=== PATIENT | male | born 2000 | race Two or more races ===

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

== ENCOUNTER 2022-12-22 18:59 | Outpatient (REF) | payer MEDICAID, SELFPAY ==
[2022-12-22 19:12] LABS: Abs Immature Grans 0.04 10^3/uL (0.0-0.06); Absolute Basophil Count 0.06 10^3/uL (0.0-0.2); Absolute Eosinophil Count 0.19 10^3/uL (0.0-0.7); Absolute Lymphocyte Count 2.74 10^3/uL (1.2-3.4); Absolute Monocyte Count 0.63 10^3/uL (0.1-0.8); Absolute Neutrophil Count 4.05 10^3/uL (1.2-6.7); Basophils % 0.8; Eosinophils % 2.5; HCT 45.7 % (40.0-50.0); HGB 14.8 g/dL (13.5-17.5); Immature Grans % 0.5; Lymphocytes % 35.5; MCH 28.2 pg (27.0-33.0); MCHC 32.4 % (32.0-36.0); MCV 87 fL (80-95); MPV 9.2 fL (8.0-11.0); Monocytes % 8.2; Neutrophils % 52.5; Platelet Count 295 10^3/uL (130-400); RBC 5.25 10^6/uL (4.36-5.78); RDW 12.4 % (11.8-14.1); RDW-SD 39.6 fL; WBC 7.71 10^3/uL (4.4-10.8)
[2022-12-22 19:42] LABS: ALT 39 U/L (16-63); AST 19 U/L (15-37); Albumin 4.2 g/dL (3.4-5.0); Alkaline Phosphatase 75 U/L (46-116); BUN 14 mg/dL (7-18); Bilirubin, Total 0.3 mg/dL (0.2-1.0); CREATININE 1.2 mg/dL (0.70-1.30); Calcium 9.4 mg/dL (8.5-10.1); Chloride 104 mmol/L (98-107); Estimated GFR 88.24 (mL/min/1.73m2); Glucose 98 mg/dL (74-106); Potassium 4.3 mmol/L (3.5-5.1); Sodium 140 mmol/L (136-145); TSH (W/Ref FT4) 0.81 uIU/mL (0.36-3.74); Vitamin B12 439 pg/mL (193-986)
== END 2022-12-22 19:00 | disposition home or self-care (01) ==
LOC: NCHCN 18:59
PROVIDERS: PCP Nurse Practitioner Family; Visit Provider Nurse Practitioner Family
DX: R53.83 Other fatigue (principal); J32.9 Chronic sinusitis, unspecified; F41.9 Anxiety disorder, unspecified; F32.A Depression, unspecified; R41.840 Attention and concentration deficit
CPT/HCPCS: 80053; 82607; 84443; 85025

== ENCOUNTER 2023-01-28 08:04 | Emergency (ER) | payer SELFPAY ==
[2023-01-28 08:06] VITALS: BP 137/86; PULSE 73; RESP 18; TEMP 36.8; O2SAT 99
--- NOTE | 2023-01-28 08:18 | W.ED.GENAD ---
Discharge Plan Disposition Patient Disposition: Home Discharge Details Clinical Impression: Laceration of left palm Primary Care Provider: OH LAMBERT ED Provider: Chhaya Lao Home Meds and New Rx's Prescriptions: No Action meclizine 25 mg tablet 25 mg PO TID Qty: 20 0RF cetirizine 10 mg tablet 10 mg PO DAILY PRN Vyvanse 20 mg capsule 20 mg PO DAILY montelukast 10 mg tablet 10 mg PO DAILY Patient Comments: TAKE ONE TABLET BY MOUTH EVERY EVENING escitalopram oxalate 20 mg tablet 20 mg PO DAILY Discharge Instructions Instructions: Laceration (ED), Skin Adhesive Care (ED) Additional Instructions: Keep clean and dry. The tissue adhesive will start to slough off in approximately 4 to 6 days. Watch for signs of infection including red streaks, drainage increased swelling and tenderness. Follow up with primary care provider in 3-5 days if needed. Return to ED sooner if any worsening or concerns. Increase oral fluids. Please take Tylenol or Ibuprofen with food every 4-6 hours as needed for pain and swelling. Stand Alone Forms: Work Release Referrals: OH LAMBERT, [employer] [Primary Care Provider] - Return if symptoms worsen Discharge Data Discharge Date/Time-TO BE ENTERED AT DEPARTURE: 01/28/23 08:43 Medical Decision Making Laceration cleaned by staffing recruiter, approximated with skin adhesive. Wound was well approximated, patient tolerated well. Discussed home care he verbalized understanding HPI General Mode of arrival: ambulatory. Date/Time Provider Initiated Documentation: 01/28/23 08:06. Limitations to Documentation: no limitations. Information obtained by: patient, RN notes reviewed and old records reviewed. HPI Narrative: 22-year-old male presents to the ER with a chief complaint of left palm laceration which occurred at 6 this morning. Patient was cutting an avocado when he excellently stabbed his left palm. Is approximately 1 cm linear laceration noted to the mid palm. He does have full range of motion noted to his hand and full sensation. Bleeding is controlled at this time. He reports that he has had a tetanus vaccination in the last 5 to 10 years. Related Data Home Medications Medication Instructions Recorded Confirmed meclizine 25 mg tablet 25 mg PO TID #20 tabs 10/30/22 10/30/22 cetirizine 10 mg tablet 10 mg PO DAILY PRN 12/23/22 01/12/23 lisdexamfetamine 20 mg capsule 20 mg PO DAILY 12/23/22 (Vyvanse) escitalopram oxalate 20 mg tablet 20 mg PO DAILY 01/28/23 01/28/23 montelukast 10 mg tablet 10 mg PO DAILY 01/28/23 01/28/23 Previous Rx's Medication Instructions Recorded meclizine 25 mg tablet 25 mg PO TID #20 tabs 10/30/22 Allergies Allergy/AdvReac Type Severity Reaction Status Date / Time No Known Allergies Allergy Unverified 01/12/23 10:25 General Stated Complaint: Laceration EFRAIN: 4 Review of Systems Integumentary/Breasts Skin/Breast: Reports wounds PFSH All Active Problems (Updated 01/28/23 @ 08:31 by Chhaya Lao NP) Laceration of left palm (Acute) Right-sided tinnitus (Acute) Laceration of thumb, left (Acute) Encounter for removal of sutures (Acute) Medical History Adjustment disorder with depressed mood Anxiety and depression Cannabis use disorder, mild, in early remission, abuse External otitis of right ear Hand pain, right Hx of substance abuse Poor concentration Sinusitis Tic disorder Surgical History Tonsillectomy (10/24/13) Social History Smoking/Tobacco Use Status: Never Smoking risk assessment performed?: Yes Alcohol Intake: current Alcohol Intake frequency: a few times a month Drug use: Daily Substance use type: marijuana Do you feel safe at home: Yes Do you feel safe in your relationship?: Yes Exam Extrem Hand/finger images: 1. Linear laceration noted, bleeding controlled. Course Vital Signs Vital signs: Vital Signs Temperature 36.8 C 01/28/23 08:06 Pulse 73 01/28/23 08:06 Respiratory Rate 18 01/28/23 08:06 Blood Pressure 137/86 01/28/23 08:06 Pulse Oximetry 99 01/28/23 08:06 Temperature 36.8 C 01/28/23 08:06 Temperature Source Oral 01/28/23 08:06 Pulse 73 01/28/23 08:06 Respiratory Rate 18 01/28/23 08:06 Respiratory Effort Normal, Non-Labored 01/28/23 08:11 Blood Pressure 137/86 01/28/23 08:06 Blood Pressure Position Sitting 01/28/23 08:06 Pulse Oximetry 99 01/28/23 08:06 Oxygen Delivery Method Room Air 01/28/23 08:06 Oxygen Flow Rate 0 01/28/23 08:06 Pain Level 3 01/28/23 08:06
== END 2023-01-28 08:43 | disposition home or self-care (01) ==
PROVIDERS: Emergency Provider Registered Nurse Emergency; PCP Nurse Practitioner Family
DX: S61.412A Laceration without foreign body of left hand, initial encounter (principal); W45.8XXA Other foreign body or object entering through skin, initial encounter; Y93.G1 Activity, food preparation and clean up
CPT/HCPCS: 12001; 99282

== ENCOUNTER 2023-04-20 13:59 | Outpatient (CLI) | payer SELFPAY ==
[2023-04-22 11:12] LABS: TB Interpretation Negative (Negative); TB1 Ag minus Nil 0.03 IU/ml
== END 2023-04-20 14:00 | disposition home or self-care (01) ==
LOC: LBO 14:01
PROVIDERS: PCP Nurse Practitioner Family; Visit Provider Nurse Practitioner Family
DX: Z51.81 Encounter for therapeutic drug level monitoring (principal)
CPT/HCPCS: 36415; 86480

== ENCOUNTER → 2023-09-08 01:01 | Outpatient (CLI) | payer BC, SELFPAY ==
--- NOTE | 2023-09-08 06:45 | DI.MRI_ITS ---
Exam(s) MR IAC BRAIN WO/W EXAM: MR IAC BRAIN WO/W CLINICAL HISTORY: Asymmetrical sensorineural hearing loss, rt sided tinnitus. TECHNIQUE: Multiplanar multisequence MRI of the brain and internal auditory canals was performed. CONTRAST MATERIAL: IV Contrast: 16 mL of Magnevist contrast administered. COMPARISON: No exams were available for comparison FINDINGS: Exam somewhat limited by motion. VENTRICLES AND EXTRA AXIAL SPACES: Normal in size and morphology for the patient's age. HEMORRHAGE: None. CEREBRAL PARENCHYMA: No focus of restricted diffusion to suggest acute infarct. No space-occupying le nannette identified. MIDLINE SHIFT: None. BRAINSTEM/CEREBELLUM: Normal. CALVARIUM: Normal. ENHANCEMENT: No suspicious enhancement identified. VISUALIZED PARANASAL SINUSES/MASTOIDS: Mucous retention cyst floor of left maxillary sinus. ORBITS: Unremarkable. IAC/CP ANGLE: The internal auditory canals are within normal limits. The cerebellar pontine angles ar e unremarkable. No enhancing lesions are seen. Visualized portions of the cranial nerves appear withi n normal limits. OTHER FINDINGS: None. IMPRESSION: Unremarkable MRI of the brain and internal auditory canals. DATA REPOSITORY:
[2023-09-08] MEDS: Normal Saline Flush 10 ML SYR IVP (07:38)
[2023-09-08] MEDS: Gadoterate meglumine 20 ML SYRINGE 16 ML IVP (07:39)
== END ==
PROVIDERS: PCP Nurse Practitioner Family; Visit Provider Registered Nurse Maternal Newborn
DX: H91.8X1 Other specified hearing loss, right ear (principal); H93.11 Tinnitus, right ear
CPT/HCPCS: 70553

== ENCOUNTER 2024-02-16 17:55 | Emergency (ER) | payer BC, SELFPAY ==
[2024-02-16] VITALS (27 sets, daily range): BP systolic 121–146; BP diastolic 55–90; PULSE 68–94; RESP 11–23; TEMP 36.4; O2SAT 83–100
--- NOTE | 2024-02-16 19:15 | DI.CT_ITS ---
Exam(s) CT THORACIC LUMBAR SPINE WO CT CHEST/ABD/PEL W EXAM: CT CHEST/ABD/PEL W and CT lumbar and thoracic spine recons CLINICAL HISTORY: Chest Pain, Abdominal Pain Trauma TECHNIQUE: Imaging Protocol: Axial computed tomography images with coronal and sagittal reformatted images were created and reviewed CONTRAST MATERIAL: Intravenous: Omnipaque 350 contrast volume:100 mL Oral: No COMPARISON: No previous for comparison. FINDINGS: CHEST: Tracheobronchial tree: Patent where visualized. Pulmonary parenchyma: No consolidation or dominant measurable mass. No architectural distortion. Visualized thyroid gland: Unremarkable. Mediastinum and Constance: No dominant adenopathy or fluid collection. The esophagus is unremarkable. The re is soft tissue seen in the anterior mediastinum most consistent with residual thymic tissue. Pleura: No effusion or pneumothorax. Heart: The heart is not dilated. No coronary artery calcifications are seen. No pericardial effusion. Pulmonary arteries: Due to the bolus timing the pulmonary arteries are not adequately opacified for e valuation of pulmonary emboli. No large central pulmonary embolus is seen. Aorta: Thoracic aorta non-dilated. No evidence of dissection. Lymph nodes: Within normal limits. Soft tissues: Unremarkable. Bones:Within normal limits for the patient's age. No displaced rib fractures. 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 CT thoracic spine recons: There is deformity of the superior and right aspect of the 10th and 11th ve rtebral body suspicious for acute fractures. ABDOMEN: Liver: Normal density. No measurable mass. Portal, Superior Mesenteric, and Splenic Veins: Unremarkable. Gallbladder and Biliary Tract: No radiodense calculus or dilation. Pancreas: Normal density, no abnormal calcifications or inflammatory process. Spleen: Normal. Adrenals: No masses seen. Kidneys: Normal size, contour and axis. No radiodense stones or obstructive uropathy. No masses seen. Abdominal Aorta: Abdominal portion non-dilated. Bowel: No obstruction or bowel wall thickening. Appendix is unremarkable. Peritoneal Cavity: No ascites, collection or mesenteric inflammatory response. No free air. Lymph Nodes: Within normal limits. Bones: Within normal limits for the patient's age. Soft Tissues: Unremarkable. CT lumbar spine recons : No acute fracture or subluxation in the lumbar spine. PELVIS: Bladder: Symmetric distention, no gross wall thickening. Reproductive Organs: Unremarkable as visualized. Lymph Nodes: Within normal limits. Bones: Within normal limits. IMPRESSION: 1. No acute pulmonary, abdominal or pelvic process. 2. No acute fracture or subluxation in the lumbar spine. 3. Question of fractures involving the superior and right aspect of the T10 and T11 vertebral bodies. No significant compression is seen. Unexpected findings RADIATION DOSE DELIVERED: 1,329.91mGy.cm Total DLP DATA REPOSITORY: All CT scans at this facility are submitted to the National Radiology Data Registry (NRDR) Dose Index Registry (DIR) with the [employer] ([employer]). RADIATION OPTIMIZATION: All CT scans at this facility use at least one of these dose optimization te chniques: automated exposure control; mA and/or kV adjustment per patient size (includes targeted exa ms where dose is matched to clinical indication); or iterative reconstruction.
--- NOTE | 2024-02-16 19:15 | RT.EKG_ITS ---
APPROVED REPORT Exam: Resting ECG Reason for Exam: Trauma, Chest Pain Patient Location: E HR:72 bpm ECG Measurements Heart Rate 72 AXIS OK 187 P 70 QRSd 123 QRS 84 QT 367 T 43 QTc 402 Conclusion Sinus rhythm...normal P axis, V-rate 60- 99 IVCD, consider RBBB...QRSd>120mS, terminal axis(90,270) ST elevation secondary to IVCD...Multiple VCG criteria ST elevation, consider inferior injury...ST >0.08mV, II III aVF Normal [place] ST Elevation is minimal and most likely related to early repolarization IVCD does have RBBB appearance
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
[2024-02-16] MEDS: ACETAMINOPHEN 1,000 MG/100 ML BTL 400 MG IVPB (19:28)
[2024-02-16] MEDS: Ondansetron 4 MG/2 ML VIAL IVP (19:28)
[2024-02-16] MEDS: Normal Saline 1,000 ML 1000 ML IV (19:29)
[2024-02-16 19:38] LABS: Abs Immature Grans 0.14 10^3/uL (0.0-0.06); Absolute Monocyte Count 1.05 10^3/uL (0.1-0.8); Absolute Neutrophil Count 13.16 10^3/uL (1.2-6.7); Basophils % 0.5 %; Eosinophils % 0.2 %; HCT 45.1 % (40.0-50.0); Immature Grans % 0.9 %; Lymphocytes % 11.9 %; MCH 28.5 pg (27.0-33.0); MCHC 33.3 % (32.0-36.0); MCV 86 fL (80-95); MPV 9.2 fL (8.0-11.0); Monocytes % 6.4 %; Neutrophils % 80.1 %; Platelet Count 274 10^3/uL (130-400); RBC 5.26 10^6/uL (4.36-5.78); RDW 12.9 % (11.8-14.1); RDW-SD 40.1 fL; WBC 16.43 10^3/uL (4.4-10.8)
[2024-02-16 19:39] LABS: Absolute Basophil Count 0.08 10^3/uL (0.0-0.2); Absolute Eosinophil Count 0.03 10^3/uL (0.0-0.7); Absolute Lymphocyte Count 1.96 10^3/uL (1.2-3.4)
[2024-02-16 19:55] LABS: ALT 30 U/L (16-63); AST 21 U/L (15-37); Albumin 4.8 g/dL (3.4-5.0); Alkaline Phosphatase 80 U/L (46-116); Anion Gap 12.9 mmol/L (3-11); BUN 10 mg/dL (7-18); Bilirubin, Total 0.6 mg/dL (0.2-1.0); CO2 25.1 mmol/L (21.0-32.0); CREATININE 1.2 mg/dL (0.70-1.30); Calcium 9.9 mg/dL (8.5-10.1); Chloride 101 mmol/L (98-107); Estimated GFR 87.69 (mL/min/1.73m2); Glucose 93 mg/dL (74-106); Lipase 38 U/L (16-77); Magnesium 1.8 mg/dL (1.8-2.4); Potassium 3.5 mmol/L (3.5-5.1); Sodium 139 mmol/L (136-145); Total Protein 7.9 g/dL (6.4-8.2)
[2024-02-16 19:59] LABS: Troponin I 85 ng/L (< or =60)
[2024-02-16] MEDS: Normal Saline - Diluent 50 ML VIAL IJ (20:17)
[2024-02-16] MEDS: Omnipaque 350 MG/ML 100 ML BTL IJ (20:18)
[2024-02-16] MEDS: Normal Saline Flush 10 ML SYR IVP (20:19)
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
[2024-02-16] MEDS: Cyclobenzaprine 10 MG TAB PO (21:39)
[2024-02-16] MEDS: Ibuprofen 400 MG TAB PO (21:39)
[2024-02-16] MEDS: Cyclobenzaprine 10 MG TAB, 3 TABS/BTL PO (22:05)
== END 2024-02-16 22:06 | disposition home or self-care (01) ==
PROVIDERS: Emergency Provider Registered Nurse Emergency; PCP Nurse Practitioner Family
DX: S06.0XAA Concussion with loss of consciousness status unknown, initial encounter (principal); S20.214A Contusion of middle front wall of thorax, initial encounter; V18.0XXA Pedal cycle driver injured in noncollision transport accident in nontraffic accident, initial encounter; W17.89XA Other fall from one level to another, initial encounter; M54.50 Low back pain, unspecified; R11.0 Nausea; R10.30 Lower abdominal pain, unspecified
CPT/HCPCS: 36415; 74177; 80053; 83690; 93005; 96361; 96365; 96375; 99285; 70450; 71260; 72125; 72128; 72131; 83735; 84484; 85025; 93010; 99283; J0131; J2405; J3490

== ENCOUNTER 2024-03-01 14:14 | Emergency (ER) | payer BC, SELFPAY ==
[2024-03-01 14:24] VITALS: BP 120/80; PULSE 65; RESP 16; TEMP 36.7; O2SAT 99
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
[2024-03-01 14:44] VITALS: BP 120/80; PULSE 65; RESP 16; TEMP 36.7; O2SAT 99
== END 2024-03-01 14:44 | disposition home or self-care (01) ==
PROVIDERS: Emergency Provider Emergency Medicine; PCP Nurse Practitioner Family
DX: S61.240A Puncture wound with foreign body of right index finger without damage to nail, initial encounter (principal); W45.8XXA Other foreign body or object entering through skin, initial encounter; Y93.89 Activity, other specified
CPT/HCPCS: 99283